=== PATIENT | female | born 1965 | race Caucasian/White ===

== ENCOUNTER 2018-03-04 11:31 | Observation (INO) ==
[2018-03-04] MEDS ORDERED: KETOROLAC TROMETHAMINE 60 MG/2 ML VIAL IM ONE (11:34)
--- NOTE | 2018-03-04 11:42 | ERNOTE ---
Upper Extremity HPI - Narrative Date of Service: 03/04/18 - General Extremities Pain Location: collar-bone area: left, shoulder: left, arm: left Time Seen by Provider: 03/04/18 11:36 Source: patient, EMS - Immun/Allergies/Home Medications Allergies/Adverse Reactions: Allergies Allergy/AdvReac Type Severity Reaction Status Date / Time ibuprofen Allergy Verified 03/04/18 11:39 Penicillins Allergy Verified 03/04/18 11:39 Home Medications: HOME MEDICATIONS NK 03/04/18 [Last Taken Unknown] - History of Present Illness Narrative: Patient is a 52-year-old lady who presents to the emergency room after falling 4-5 feet in her home. She is brought to the emergency room by EMS after a fall and landed on the left side of her body. She demonstrated no loss of consciousness after the fall She complains of left clavicle pain, upper arm pain and a left scapular pain, all occurring after her fall. In route, patient was given fentanyl intranasally for pain. She denies any nausea, vomiting, loss of consciousness, anteriorly located chest pain, shortness of breath, pleuritic symptoms, fever, chills, night sweats, hemoptysis Occurred: just prior to arrival Location of Incident: home Severity: severe Method of Injury: Reports: fell, direct blow Reason for Fall: Reports: lost balance Loss of Consciousness: Reports: no loss of consciousness Other Injuries: Reports: none Review of Systems - Review of Systems Constitutional: Present: no symptoms reported EYE: Present: no symptoms reported ENT: Present: no symptoms reported Respiratory: Present: no symptoms reported Cardiology: Present: no symptoms reported Gastrointestinal/Abdominal: Present: no symptoms reported Musculoskeletal: Present: See HPI Skin: Present: no symptoms reported Neurological: Present: no symptoms reported Endocrine: Present: no symptoms reported Hematologic/Lymphatic: Present: no symptoms reported Psych: Present: no symptoms reported Medical History (Last Updated 03/04/18 @ 11:38 by Erica Noble) No active medical problems Surgical History: Surgical History (Last Updated 03/04/18 @ 11:39 by Erica Noble) History of Hx of cholecystectomy Family History: Family History (Last Updated 03/04/18 @ 11:42 by Erica Noble) Father Dementia Hypercholesteremia Hypertension Mother Depression Bipolar 1 disorder Physical Exam - Physical Exam General Appearance: Present: wd/wn, alert, no apparent distress, moderate distress Head Exam: Present: normal inspection, no evidence of injury Eye Exam: Normal inspection: bilateral, PERRL: bilateral, EOMI: bilateral Neck: Present: normal inspection, nontender, supple, full range of motion Respiratory: Present: no respiratory distress, normal breath sounds, no accessory muscle use, chest nontender, lungs clear, other - appears to be tender at the posterior left scapular region. Cardiovascular/Chest: Present: no murmur, normal peripheral pulses, tachycardia Gastrointestinal/Abdominal: Present: normal bowel sounds, nontender, nondistended, soft, no organomegaly Extremity Exam: Present: other - history have a upper extremity that is rotated internally. She is wearing a figure 8 splint on the left upper extremity encompassing her left shoulder. Palpation of the mid to lateral aspect of the left clavicle appear tender with some crepitus palpated. Neurological Exam: Present: alert, oriented, normal mood/affect, no motor/sensory deficits Skin Exam: Present: normal color Lymphatic Exam: Present: no adenopathy ED Progress - Vital Signs Patient's Vital Signs:: I have reviewed the patient's vital signs. - X-Ray X-Ray #1 X-Ray: chest Interpretation: Reviewed by me X-ray Comments: HISTORY: fall. Additional history from technologist: Fell off 4 ft trailer today. Hurt LT side of body TECHNIQUE: PA and lateral views of the chest were obtained. 2 images. COMPARISONS: None Available FINDINGS: Chest PA Lateral * Asymmetrically inflated lung volumes, with relatively decreased left lung volume. No consolidation or mass. No significant vascular congestion suggested. No pneumothorax or pleural fluid collections. Cardiac silhouette within normal limits. Trachea is in normal position. Bones show degenerative changes of the spine. Please see the left-sided rib series and left shoulder x-ray report for additional details regarding the acute injuries. IMPRESSION: Asymmetrically hypoinflated left lung. No focal acute cardiopulmonary finding. X-Ray #2 X-Ray: clavicle Interpretation: Reviewed by me X-ray Comments: Exam Date: 03/04/2018 11:35 Ordering Physician: Gerardo Grewal Indication: Fall off of forefoot trailer today. Left shoulder pain. Technique: AP, Grashey and scapular Y views of the left shoulder utilizing 4 total images. Findings: Diffuse decreased bony mineralization. There is an acute complex fracture of the left clavicle. Multiple fracture fragments are seen. Minimal inferior displacement of the distal fracture fragment. There also acute minimally displaced fractures of the lateral aspect of the third and fourth ribs on the left. IMPRESSION: 1. ACUTE MILDLY COMMINUTED FRACTURE OF THE LEFT MID CLAVICLE. 2. MINIMALLY DISPLACED ACUTE LATERAL LEFT THIRD AND FOURTH RIB FRACTURES. X-Ray #3 X-Ray: ribs Interpretation: Reviewed by me X-ray Comments: HISTORY/INDICATION: injury. Additional history from technologist: Fell off 4 ft trailer today. Hurt LT side of body TECHNIQUE: 4 views of the Left sided ribs. COMPARISONS: None available. Ribs Unilateral LT * Fracture lucencies identified at the anterior aspect of the left second rib, lateral aspect of the left third rib with displacement, with nondisplaced fracture suggested at the posterior lateral aspects of the left fifth and sixth ribs. There is questionable cortical discontinuity versus artifact at the lateral left fourth rib on the frontal/AP projection. Visualized portions of the chest grossly normal. IMPRESSION: 1. Multiple left-sided rib fractures, at the left second, third, fifth and sixth ribs. Questionable finding at the lateral left fourth rib. 2. Additional comments are as above. Electronically signed by Echo Cervantes M.D.. - Progress/Reassessment Progress:: Unchanged Progress Note-Subjective: 03/04/18 14:47 Upper arrival to the emergency room patient received Toradol 60 mg IM 1. In addition she has also gotten 2 doses of Dilaudid 0.5 mg IV and 2. I do have reasons to believe that I may not be able to time this around. I did talk to Dr. Bernal and he is agreeable to having her observed for pain control - Transfer of Care Expected Disposition: Admit Departure Clinical Impression: Fall (on) (from) other stairs and steps, initial encounter - Departure Disposition: Still a patient Condition: Stable
[2018-03-04] MEDS ORDERED: HYDROmorphone HCL 1 MG/ML DISP.SYRIN IV ONE ×2 (12:49→14:07)
[2018-03-04] MEDS ORDERED: ONDANSETRON HCL/PF 2 MG/ML VIAL IV ONE (12:50)
[2018-03-04 13:35] LABS: Urine Bilirubin Negative (NEGATIVE); Urine Blood Negative /ul (NEGATIVE); Urine Ketone Negative (NEGATIVE); Urine Nitrite Negative (NEGATIVE); Urine Protein Negative (NEGATIVE); Urine Specific Gravity >=1.030 SP.GR. (1.005-1.010); Urine Urobilinogen Normal (NORMAL); Urine pH 5.5 pH (5.0-7.0)
[2018-03-04 14:00] LABS: Urine Appearance Clear (CLEAR); Urine Bacteria TRACE; Urine Color Yellow; Urine RBC None Seen /hpf (0-5); Urine WBC None Seen /hpf (0-5)
[2018-03-04] MEDS ORDERED: oxyCODONE HCL/ACETAMINOPHEN 1 TAB TABLET PO PRN (16:05)
--- NOTE | 2018-03-04 18:12 | HP ---
Chief Complaint - Chief Complaint Date of Service: 03/04/18 Time of Service: 18:12 Chief Complaint: Fall, Rib pain, Shoulder pain History of Present Illness: Ramonita is a 52 yo female who had a fall from a ladder landing on left side. She immediate noted left side shoulder and rib pain. She presented to the [facility] ER for evaluation and was found to have multiple rib fractures and a left clavicle fracture. ER reported that her pain was not able to be controlled with oral medication and requested she be admitted for pain control. At the time of my examination she reports the pain has improved and she is now tolerating the pain. She feels that she would be able to go home. Medical History (Last Reviewed 03/13/18 @ 14:32 by Shailesh Guillory CRNA) Fx clavicle Onset Date: ~03/04/18 Rib fracture Onset Date: ~03/04/18 Surgical History: Surgical History (Last Updated 03/14/18 @ 16:11 by Art Brown) History of open reduction and internal fixation (ORIF) procedure Onset Date: ~03/13/18 Procedure: Open reduction internal fixation of left clavicle fracture with intraoperative interpretation of x-rays Dr. Leslie S/P arthroscopic knee surgery Onset Date: ~1996 left Tubal ligation status Onset Date: ~1994 History of Onset Date: ~1994 1990 Hx of cholecystectomy Onset Date: ~1990 arthritis scraped off left foot Onset Date: ~2016 plates/screws in neck Onset Date: Unknown Family History: Family History (Last Reviewed 03/13/18 @ 13:55 by Opal Frank) Father Dementia Hypercholesteremia Hypertension Mother Depression Bipolar 1 disorder Social History: Patient Lives/Resources Home Utilized Occupation [employer] Preferred Language Amharic Do you have any confucianism or Yes: Holiness cultural preference? Smoking Status Current every day smoker Have you smoked in the past 12 No months Do you dip or chew tobacco No Alcohol Use none Drug Use none Review Of Systems (GEN) - Review of Systems Generalized/Overall Review: Absent: Weakness, Chills, Fever EENTM: Present: No Symptoms Reported Respiratory: Absent: Cough, Shortness of Breath Cardiac: Present: Chest Pain. Absent: Edema Abdominal: Absent: Nausea, Vomiting Genitourinary: Present: No Symptoms Reported Musculoskeletal: Present: Joint Pain, Back Pain, Muscle Pain Neurological: Present: No Symptoms Reported Skin: Present: No Symptoms Reported Immunizations: IMMUNIZATION HX Immunizations Up to Date Yes History of Influenza Vaccine No Allergies/Adverse Reactions: Allergies Allergy/AdvReac Type Severity Reaction Status Date / Time ibuprofen Allergy itching, Verified 03/13/18 13:55 short of breath Penicillins Allergy rash Verified 03/13/18 13:55 Home Medications: HOME MEDICATIONS oxyCODONE HCL/ACETAMINOPHEN [Percocet 5 MG/325 MG] 1 tab PO Q3H PRN #40 tab 03/04/18 [Last Taken 03/12/18 20:00] naproxen 250 mg tablet 250 mg PO Q6-12H PRN 03/07/18 [Last Taken 03/12/18 20:00] oxycodone-acetaminophen 5 mg-325 mg tablet See Rx Instructions PO .Q4-6H PRN #40 tab 03/14/18 [Last Taken Unknown] Exam - Exam Vital Signs: Vital Signs - Last Taken Temp 37.7 C 03/04/18 15:35 Pulse 73 03/04/18 15:40 Resp 18 03/04/18 15:40 BP 135/76 03/04/18 15:40 Pulse Ox 97 03/04/18 15:40 Constitutional: Present: Alert, Oriented x3, Other - In left shoulder sling ENT Exam: Present: hearing grossly normal Eye Exam: bilateral eye: normal inspection Respiratory: Present: lungs clear, normal breath sounds Cardiovascular/Chest: Present: regular rate, rhythm, no murmur Abdomen: Present: Normal bowel sounds, soft, nontender, nondistended Appearance: Present: appropriate appearance, appropriate insight Eye contact: Present: cooperative, good eye contact, normal speech Thoughts: Present: normal thought pattern, no apparent hallucination Diagnostic Studies: Abnormal Lab Results 03/04/18 Range/Units 13:29 Ur Epithelial Cells 5-10 H (0-5) /hpf Laboratory Results Urine Color Yellow 03/04/18 13:29 Urine Appearance Clear (CLEAR) 03/04/18 13:29 Urine pH 5.5 pH (5.0-7.0) 03/04/18 13:29 Ur Specific [place] >=1.030 SP.GR. (1.005-1.010) 03/04/18 13:29 Urine Protein Negative mg/dL (NEGATIVE) 03/04/18 13:29 Urine Glucose (UA) Negative mg/dL (NEGATIVE) 03/04/18 13:29 Urine Ketones Negative mg/dL (NEGATIVE) 03/04/18 13:29 Urine Blood Negative /ul (NEGATIVE) 03/04/18 13: Urine Nitrate Negative (NEGATIVE) 03/04/18 13:29 Urine Bilirubin Negative mg/dl (NEGATIVE) 03/04/18 13:29 Urine Urobilinogen Normal EU/dl (NORMAL) 03/04/18 13:29 Ur Leukocyte Esterase Negative /ul (NEGATIVE) 03/04/18 13:29 Urine RBC None seen /hpf (0-5) 03/04/18 13:29 Urine WBC None seen /hpf (0-5) 03/04/18 13:29 Ur Epithelial Cells 5-10 /hpf (0-5) H 03/04/18 13: Urine Bacteria Trace (NONE) 03/04/18 13: Urine Culture Comments No culture indicated 03/04/18 13:29 Assessment/Plan - Narrative Narrative: Ramonita is a 52 yo female with multiple left rib fractures and left clavical fracture. She was requested for admission due to pain control that was uncontrolled in the ER. She is now on the floor and pain is doing better. Will continue to monitor but will plan to discharge to home later today if pain remains controlled. - Assessment/Plan (1) Fall (on) (from) other stairs and steps, initial encounter Problem: Acute (2) Clavicle fracture Problem: Acute Qualifiers: Encounter type: initial encounter Clavicle location: shaft Fracture type: closed Fracture alignment: displaced Laterality: left Qualified Code(s): S42.022A - Displaced fracture of shaft of left clavicle, initial encounter for closed fracture (3) Ribs, multiple fractures Problem: Acute Qualifiers: Encounter type: initial encounter Fracture type: closed Laterality: left Qualified Code(s): S22.42XA - Multiple fractures of ribs, left side, initial encounter for closed fracture
--- NOTE | 2018-03-04 18:30 | DS ---
(1) Clavicle fracture Problem: Acute Qualifiers: Encounter type: initial encounter Clavicle location: shaft Fracture type: closed Fracture alignment: displaced Laterality: left Qualified Code(s): S42.022A - Displaced fracture of shaft of left clavicle, initial encounter for closed fracture (2) Ribs, multiple fractures Problem: Acute Qualifiers: Encounter type: initial encounter Fracture type: closed Laterality: left Qualified Code(s): S22.42XA - Multiple fractures of ribs, left side, initial encounter for closed fracture Description of Stay: Ramonita is a 52 yo female admitted for pain control for left comminuted clavical fracture and multiple left rib fractures. In the ER she was having severe pain and required IV dilaudid. It was felt that she would continue to need IV pain control and they requested admission for observation. Once on the floor the pain significantly improved and while in a shoulder sling the pain was very tolerable. I discussed the clavicle fracture with Dr. Leslie of Orthopedics who requested that she follow up this week in orthopedics clinic. She is medically doing well and pain is now controlled. She will be discharged to home with ortho follow up. She was also educated to cough and take deep breaths to prevent pneumonia from developing with the rib fractures. Procedures Performed: none Results and Findings: Lab Pending Results 03/04/18 13:29: Urine Color Yellow, Urine Appearance Clear, Urine pH 5.5, Ur Specific [place] >=1.030, Urine Protein Negative, Urine Glucose (UA) Negative, Urine Ketones Negative, Urine Blood Negative, Urine Nitrate Negative, Urine Bilirubin Negative, Urine Urobilinogen Normal, Ur Leukocyte Esterase Negative, Urine RBC None seen, Urine WBC None seen, Ur Epithelial Cells 5-10 H, Urine Bacteria Trace, Urine Culture Comments No culture indicated Discharge Location: Home Disposition: Home self-care Condition: Fair Discharge Activity: Other - Keep left arm in shoulder sling Discharge Diet: General/regular food Referrals: Byron Leslie MD [Staff Physician] - (This week in ortho clinic per Dr. Leslie) Problem Oriented Discharge Instructions to Patient/Family: Clavicle Fracture, [id number], Rib Fracture Additional Patient Instructions (free text): Work on coughing and taking deep breaths to prevent pneumonia due to rib fractures. Prescriptions (Any new or edited meds): oxyCODONE HCL/ACETAMINOPHEN [Percocet 5 MG/325 MG] 1 tab PO Q3H PRN #40 tablet PRN Reason: Moderate Pain (Pain Scale 4-6) Complete Home Medications List: Complete Home Medication List: NK 03/04/18 oxyCODONE HCL/ACETAMINOPHEN [Percocet 5 MG/325 MG] 1 tab PO Q3H PRN #40 tablet 03/04/18
[2018-03-04 20:08] VITALS: BP 135/82
== END 2018-03-04 18:55 | disposition home or self-care (01) ==
LOC: ER 11:31 → MS 14:54 → INTOOBSV 14:54 → MS 15:44
PROVIDERS: ADMIT Family Medicine; ATTEND Family Medicine
DX: W19.XXXA Unspecified fall, initial encounter
CPT/HCPCS: 71020; 71046; 71100; 73030; 81001; 96372; 96374; 96375; 96376; 99285; G0378; J2405